=== PATIENT | female | born 1980 | race Caucasian/White ===

== ENCOUNTER → 2016-05-27 | Outpatient (CLI) | payer MEDICAID ==
[~2016-05-27] MED LIST: AMOXIL500 MG PO; DARVOCET-N 1001 EACH PO; EC NAPROSYN500 MG PO; FLEXERIL10 MG PO; GABAPENTIN 600600 MG PO; HYDROCODONE-APA1 TA1 PO; IBU-8800 MG PO; LORTAB 7.5/3251 TAB PO; MEDROL 4MG. DOSE4 MG PO; MOTRIN800 MG PO; NAPROSYN500 M1 PO; NOMEDS; NORCO 325 MG-51 TAB PO; PERCOCET 5/3251 EACH PO; TYLENOL W/CODEI1 TA2 PO; Tramadol HCl50 MG PO; XANAX 0.5MG TA0.5 MG PO; XANAX 1MG TABLET1 MG PO; ZITHROMAX Z PA250 MG PO
[2016-05-27 17:47] LABS: AMPHETAMINES/METAMPHETAMINES NEGATIVE ng/mL (<1000)
== END ==
LOC: LAB 15:27
PROVIDERS: Emergency Medicine
DX: Z79.899 Other long term (current) drug therapy (principal)

== ENCOUNTER → 2016-08-21 | Outpatient (CLI) | payer MEDICAID ==
[2016-08-21 13:48] LABS: AMPHETAMINES/METAMPHETAMINES NEGATIVE ng/mL (<1000)
== END ==
LOC: LAB 13:30
PROVIDERS: Emergency Medicine
DX: Z79.899 Other long term (current) drug therapy (principal)